=== PATIENT | female | born 1940 | race American Indian/Alaskan Native ===

== ENCOUNTER 2016-11-20 23:47 | Emergency (ER) | payer MEDICARE, OTHER ==
--- NOTE | 2016-11-21 01:03 | Emergency Department Report ---
HPI - General Chief Complaint: Syncope Time Seen by Provider: 11/20/16 23:59 - HPI HPI: This is a 76-year-old Afro[place] female presents to the emergency department via EMS from her daughter's home with complaint of a possible seizure and a unresponsive episode. The patient does have a history of "silent seizures" but has not had one in 3 years. They found the patient next to her bed with a forehead hematoma. She started become more lucid but had some level of confusion for a while. She was AAO 2 upon arrival of EMS. She was not given anything prior to presentation. She does not take anything for seizures. She also has a past medical history of CVA 3 with right-sided weakness, some dementia, diabetes, hypertension, coronary artery disease with 5 stents. She lives in [facility] and is currently here visiting her family but does live in [place] with a different daughter. ED Past Medical Hx - Past Medical History Previous Medical History?: Yes Hx Hypertension: Yes Hx CVA: Yes (x 3) Hx Diabetes: Yes Hx Seizures: Yes (Last seizure 02/24/2014) Hx Dementia: Yes Additional medical history: Tetanus status up-to-date - Surgical History Hx Coronary Stent: Yes (5 stents placed 2-3 mos ago) Hx Pacemaker: No Hx Cholecystectomy: Yes (CHOLECYSTECTOMY) - Social History Smoking Status: Never Smoker Substance Use Type: None - Medications Home Medications: Home Medications Medication Instructions Recorded Confirmed Last Taken Type Baclofen [Lioresal] 10 mg PO QID 12/29/13 10/12/14 10/11/14 History Clopidogrel Bisulfate [Plavix] 75 mg PO QDAY 12/29/13 10/12/14 10/11/14 History Folic Acid [Folvite] 1 mg PO QDAY 12/29/13 10/12/14 10/11/14 History ISOSORBIDE MONOnitrate [Imdur ER] 60 mg PO QDAY 12/29/13 10/12/14 10/11/14 History Rosuvastatin (Nf) [Crestor] 20 mg PO QHS #30 tablet 05/05/14 10/12/14 10/11/14 Rx Gabapentin [Neurontin] 600 mg PO Q8HR #90 capsule 07/31/14 10/12/14 10/11/14 Rx Metoprolol [Lopressor TAB] 50 mg PO BID #60 tablet 07/31/14 10/12/14 10/11/14 Rx amLODIPine [Norvasc] 10 mg PO QDAY #30 tablet 07/31/14 10/12/14 10/11/14 Rx HYDROcodone/APAP 5-325 [[place] 2 each PO Q6H PRN #20 tablet 10/15/14 Unknown Rx 5-325 mg TAB] Levofloxacin [Levaquin TAB] 500 mg PO QDAY #7 tablet 10/15/14 Unknown Rx levETIRAcetam [Keppra TAB] 500 mg PO BID #60 tablet 11/21/16 Unknown Rx ED Review of Systems ROS: Stated complaint: SEIZURE Other details as noted in HPI Comment: All other systems reviewed and negative Constitutional: denies: chills, fever Eyes: denies: eye pain, eye discharge, vision change ENT: denies: ear pain, throat pain Respiratory: denies: cough, shortness of breath, wheezing Cardiovascular: syncope. denies: chest pain Gastrointestinal: denies: abdominal pain, nausea, diarrhea Genitourinary: denies: urgency, dysuria, discharge Musculoskeletal: denies: back pain, joint swelling, arthralgia Skin: denies: rash, lesions Neurological: headache. denies: numbness Physical Exam - Physical Exam Vital Signs: Vital Signs 11/20/16 11/21/16 11/21/16 23:54 00:00 00:12 Temperature 98 F Pulse Rate 68 67 Respiratory 14 13 Rate Blood Pressure 166/79 O2 Sat by Pulse 94 Oximetry Physical Exam: GENERAL: The patient is well-developed well-nourished. Patient appears fatigued but is arousable. HEENT: Normocephalic. Atraumatic. Extraocular motions are intact. Patient has moist mucous membranes. Pupils equal reactive to light bilaterally. NECK: Supple. Trachea is midline. Full range of motion. Nontender to palpation and no step-off or deformity. CHEST/LUNGS: Clear to auscultation. There is no respiratory distress noted. HEART/CARDIOVASCULAR: Regular. There is no tachycardia. There is no gallop rub or murmur. ABDOMEN: Abdomen is soft, nontender. Patient has normal bowel sounds. There is no abdominal distention. SKIN: Skin is warm and dry. NEURO: The patient is awake, alert, and oriented to person place and time.. The patient is cooperative. The patient has no focal neurologic deficits. The patient has normal speech. MUSCULOSKELETAL: There is no tenderness or deformity. Radial pulse +2 over 4 bilaterally. There is no evidence of acute injury. BACK: No midline thoracic or lumbar tenderness to palpation or deformity. ED Course Vital Signs 11/20/16 11/21/16 11/21/16 23:54 00:00 00:12 Temperature 98 F Pulse Rate 68 67 Respiratory 14 13 Rate Blood Pressure 166/79 O2 Sat by Pulse 94 Oximetry ED Medical Decision Making - Lab Data Result diagrams: 11/21/16 01:04 11/21/16 01:04 - EKG Data -: EKG Interpreted by Nh EKG shows normal: sinus rhythm, axis (borderline right axis deviation), intervals (prolonged IN interval indicating first-degree AV block), QRS complexes, ST-T waves (nonspecific ST-T changes) Rate: normal - EKG Data When compared to previous EKG there are: previous EKG unavailable Interpretation: other (sinus rhythm with first-degree AV block, nonspecific ST- T changes) - Radiology Data Radiology results: report reviewed CT of the facial bones does not show any fracture, dislocation or any acute process. There is a soft tissue area to the mid forehead. CT of the head without contrast shows no evidence of an acute intercranial process. Mild atrophy and periventricular deep white matter changes are noted. Old lacunar infarctions of both basal ganglia. Soft tissue swelling over the frontal bone midline is identified but no skull fracture. CT of the cervical spine without contrast shows no evidence of acute fracture or dislocation. Mild cervical spondylosis and degenerative disc changes with bilateral neural foramen stenosis at the C4 through C7 levels. - Medical Decision Making 76 year old female presents to the emergency department, with her family, after the patient was found unresponsive but breathing and with a pulse. She slowly became more alert and oriented back towards her baseline. She had a forehead hematoma. The patient has a history of seizures but has not had one in a few years. This was unwitnessed. A CT of the head, facial bones and cervical spine were all done that did not show any acute process including no bleed, shift, mass, fractures, subluxations. Patient's labs were unremarkable as well and did not show any etiology of the patient's symptoms. EKG did not show any signs of ST elevation ND or dysrhythmia. The patient is AAO 3 without any acute focal deficits and her cranial nerves are intact. While the patient was slightly fatigued at the beginning but easily arousable, by the end of her ED stay she is awake and much more vibrant. The patient was tested for ambulation around the emergency department with her walker and she was able to walk around the department without any signs of being unstable. The patient is scheduled to return to [facility] tomorrow and will follow-up with her primary care doctor and neurologist. She will return to the closest emergency department with any further seizure-like activity or any acute distress. - Differential Diagnosis syncope, seizure, TIA, hypoglycemia Critical Care Time: No Critical care attestation.: If time is entered above; I have spent that time in minutes in the direct care of this critically ill patient, excluding procedure time. ED Disposition Clinical Impression: Seizure Syncope Qualifiers: Syncope type: unspecified Qualified Code(s): R55 - Syncope and collapse Hypertension Qualifiers: Hypertension type: essential hypertension Qualified Code(s): I10 - Essential ( primary) hypertension Disposition: TO HOME OR SELFCARE Is pt being admited?: No Condition: Stable Instructions: Syncope (ED), Hypertension (ED), Recurrent Seizures Adult (ED) Additional Instructions: Please follow-up with your primary care doctor as soon as you return to [facility]. It is recommended that she will also see a neurologist. I started to on a seizure medication called Keppra to be taken twice a day. Return to the emergency department immediately with any return of seizure-like activity, passing out, development of any chest pain or shortness of breath, or any acute distress. Prescriptions: levETIRAcetam [Keppra TAB] 500 mg PO BID #60 tablet Referrals: PRIMARY CARE [Primary Care Provider] - [facility] Time of Disposition: 03:00
--- NOTE | 2016-11-21 01:41 | Cat Scan Report ---
FINAL REPORT PROCEDURE: CT CERVICAL SPINE WO CON TECHNIQUE: Computerized tomography of the cervical spine was performed from the skull base to T1 without contrast material. HISTORY: Syncope, fall, forehead hematoma COMPARISON: No prior studies are available for comparison. FINDINGS: There is slight forward subluxation of C4 relation to C5 by approximately 2 millimeters. This is consistent with ligament laxity. No acute fracture or dislocation of the cervical spine. The heights of the vertebral bodies are maintained. Loss of disc space height is identified at the C4-5, C5-6 and C6-7 levels. Moderate spur formation off the vertebral bodies is identified from the C4 through the C7 vertebral levels. The AP spinal canal is adequate at all levels. Slight neuroforamen stenosis bilaterally at the C4-5, C5-6 and C6-7 levels is noted. Minimal facet hypertrophy is identified at all levels. The visualized portion of the airway appears patent. IMPRESSION: There is no evidence of an acute fracture or dislocation. Mild cervical spondylosis and degenerative disc changes with bilateral neuroforamen stenosis at the C4-5, C5-6 and C6-7 levels..
[2016-11-21 01:42] LABS: Creatine Kinase MB 3.1 ng/mL (0.0-4.0)
--- NOTE | 2016-11-21 01:43 | Cat Scan Report ---
FINAL REPORT PROCEDURE: CT FACIAL BONES WO CON TECHNIQUE: Computerized tomography of the facial bones and soft tissues with axial and coronal sections performed from the cranial aspect of the frontal sinuses to the caudal portion of the mandible without contrast material. HISTORY: Syncope, fall, forehead hematoma COMPARISON: No prior studies are available for comparison. FINDINGS: Bones: No significant abnormality. Paranasal sinuses: There is moderate opacification of all of the paranasal sinuses.. Soft tissues: Mild soft tissue swelling over the frontal region of the skull. No skull fracture.. Other: None. IMPRESSION: No evidence of an acute fracture of the facial bones. Pansinusitis.
[2016-11-21 01:44] LABS: Alanine Aminotransferase 12 units/L (7-56); Albumin 4.1 g/dL (3.9-5); Albumin/Globulin Ratio 1.1 %; Alkaline Phosphatase 107 units/L (35-129); Anion Gap 22 mmol/L; Blood Urea Nitrogen 30 mg/dL (7-17); Calcium 9.5 mg/dL (8.4-10.2); Carbon Dioxide 24 mmol/L (22-30); Chloride 90.6 mmol/L (98-107); Creatine Kinase 211 units/L (30-135); Glucose 112 mg/dL (65-100); Sodium 133 mmol/L (137-145); Total Protein 7.7 g/dL (6.3-8.2)
--- NOTE | 2016-11-21 02:02 | Cat Scan Report ---
FINAL REPORT PROCEDURE: CT HEAD/BRAIN WO CON TECHNIQUE: Computerized tomography of the head was performed without contrast material. HISTORY: Syncope, fall, forehead hematoma COMPARISON: No prior studies are available for comparison. FINDINGS: Skull and scalp: There is some soft tissue swelling over the frontal bone midline. No skull fracture is seen.. Paranasal sinuses: Moderate opacification of the paranasal sinuses.. Ventricles and subarachnoid spaces: Normal. Cerebrum: There is no evidence of acute intracranial hemorrhage, hematoma or infarction. Mild atrophy and periventricular deep white matter changes are noted. There is an old lacunar infarction of both basal ganglia.. Cerebellum and brainstem: No evidence of hemorrhage, acute infarction or mass. Vasculature: Normal. Comments: None. IMPRESSION: There is no evidence of an acute intracranial process. Mild atrophy and periventricular deep white matter changes are noted. Old lacunar infarctions of both basal ganglia are identified. Soft tissue swelling over the frontal bone midline is identified. No skull fracture is noted.
[2016-11-21] MEDS ORDERED: KEPPRA PO ONE (02:10)
[2016-11-21 02:12] LABS: Basophils % (Auto) 1.3 % (0.0-1.8); Eosinophils % (Auto) 2.4 % (0.0-4.3); Hematocrit 32.1 % (30.3-42.9); Hemoglobin 10.6 gm/dl (10.1-14.3); Mean Corpuscular HGB Conc 33 % (30-34); Mean Corpuscular Hemoglobin 27 pg (28-32); Mean Corpuscular Volume 83 fl (79-97); Platelet Count 292 K/mm3 (140-440); Red Blood Count 3.89 M/mm3 (3.65-5.03); Red Cell Distribution Width 14.8 % (13.2-15.2); White Blood Count 5.7 K/mm3 (4.5-11.0)
[2016-11-21 03:53] VITALS: BP 155/73
== END 2016-11-21 03:54 | disposition home or self-care (01) ==
LOC: ED 23:47
DX: R56.9 Unspecified convulsions (principal); R55 Syncope and collapse; I10 Essential (primary) hypertension; Z86.73 Personal history of transient ischemic attack (TIA), and cerebral infarction without residual deficits; E11.9 Type 2 diabetes mellitus without complications; F03.90 Unspecified dementia, unspecified severity, without behavioral disturbance, psychotic disturbance, mood disturbance, and anxiety; Z88.6 Allergy status to analgesic agent; Z91.018 Allergy to other foods
CPT/HCPCS: 36415; 70450; 70486; 72125; 80053; 82550; 82553; 84443; 84484; 85025; 93005; 93010